=== PATIENT | female | born 1990 | race Hispanic/Latino ===

== ENCOUNTER → 2018-01-02 | Outpatient (CLI) | payer OTHER ==
--- NOTE | 2018-01-02 09:25 | Diagnostic Imaging Report ---
PROCEDURE: X-RAY CHEST, TWO VIEWS COMPARISON: None. INDICATIONS: ACUTE PHARYNGITIS/HTN FINDINGS: LUNGS: No consolidations or edema. PLEURA: No effusions or pneumothorax. HEART \T\ MEDIASTINUM: The heart is within normal size-limits. BONES \T\ SOFT TISSUES: No acute findings. CONCLUSION: No acute thoracic abnormality. Edwar Lee D.O. Dictated by: Edwar Lee D.O. on 01/02/2018 at 9:28 Electronically approved by: Edwar Lee D.O. on 01/02/2018 at 9:28
--- NOTE | 2018-01-02 10:51 | Diagnostic Imaging Report ---
PROCEDURE:US RETROPERITONEAL ( KIDNEY ). COMPARISON:None. INDICATIONS:Hypertension TECHNIQUE: Evangelista-scale and color sonographic images of the bilateral kidneys and bladder where obtained in transverse and longitudinal planes. FINDINGS: RIGHT KIDNEY: 13 x 4.6 x 4.5 cm, cortex 2 cm Cysts: None Solid masses: None Stones: None Hydronephrosis: Absent Echogenicity: Normal LEFT KIDNEY: 12.4 x 5.7 x 6 cm, cortex 2.4 cm Cysts: None Solid masses: None Stones: None Hydronephrosis: Absent Echogenicity: Normal Bladder: Unremarkable. Both ureteral jets visualized. CONCLUSION: Unremarkable renal ultrasound. Dictated by: Devyn Driver M.D. on 01/02/2018 at 10:54 Electronically approved by: Devyn Driver M.D. on 01/02/2018 at 10:54
--- NOTE | 2018-01-02 10:57 | Diagnostic Imaging Report ---
PROCEDURE: RENAL DOPPLER ULTRASOUND COMPARISON:None. INDICATIONS:Hypertension FINDINGS: Multiple sagittal and axial images of the right and left kidneys were obtained. RIGHT KIDNEY: The right kidney measures 13 cm. The cortical thickness is 2 cm. The right kidney has normal echogenicity. There are no masses, hydronephrosis or calculi. The highest right main renal artery PSV is 150 cm/sec. The highest right segmental artery PSV is 110 cm/sec. LEFT KIDNEY: The left kidney measures 12.4 cm. The cortical thickness is 2.4 cm. The left kidney has normal echogenicity. There are no masses, hydronephrosis or calculi. The highest left main renal artery PSV is 185 cm/sec. The highest left segmental artery PSV is 99 cm/sec. The abdominal aorta PSV is 51 cm/sec. The right renal artery/aorta ratio is 3. The left renal artery/aorta ratio is 3.6. The right and left renal veins are patent. The bladder is unremarkable. CONCLUSION: 1. Normal renal ultrasound. 2. Elevated left renal artery velocities and renal artery/aorta ratio, compatible with left renal artery stenosis. 3. Borderline elevated right renal artery/aorta ratio may suggest a milder degree of stenosis. Dictated by: Devyn Driver M.D. on 01/02/2018 at 11:00 Electronically approved by: Devyn Driver M.D. on 01/02/2018 at 11:00
== END ==
LOC: US 07:35
PROVIDERS: ATTEND Family Medicine
DX: I10 Essential (primary) hypertension (principal); J30.0 Vasomotor rhinitis; J02.9 Acute pharyngitis, unspecified
CPT/HCPCS: 71046; 76770; 93306; 93976